=== PATIENT | female | born 1990 | race Caucasian/White ===

== ENCOUNTER → 2017-07-27 | Outpatient (CLI) | payer OTHER ==
[2017-07-27 13:55] LABS: GLUCOSE CHALLENGE TEST 1 HOUR 93 MG/DL (LESS THAN 140)
[2017-07-27 15:03] LABS: BASO # 0.1 10^3/uL (0.0-0.2); BASO % 0.6 % (0.0-1.0); EOS # 0.2 10^3/uL (0.0-0.50); HEMATOCRIT 33.9 % (36.0-47.0); HEMOGLOBIN 11.7 g/dl (12.0-16.0); IMMATURE GRANULOCYTE # 0.6 10^3/uL (0-0); IMMATURE GRANULOCYTE % 3.6 % (0-0); LYMPH # 2.8 10^3/uL (1.5-6.5); LYMPH % 17.9 % (24.0-44.0); MEAN CORPUSCULAR HEMOGLOBIN 32.8 pg (27.0-33.0); MEAN CORPUSCULAR HGB CONC 34.5 g/dl (32.0-36.5); MONO % 6.3 % (0.0-5.0); NEUTROPHILS % 70.6 % (36.0-66.0); PLATELET COUNT, AUTOMATED 138 10^3/uL (150-450); RED BLOOD COUNT 3.57 10^6/uL (4.00-5.40); RED CELL DISTRIBUTION WIDTH 12.7 % (11.5-14.5); WHITE BLOOD COUNT 15.7 10^3/uL (4.0-10.0)
[2017-07-28 10:28] LABS: HEPATITIS C VIRUS ABY INDEX < 0.0 INDEX (<0.8)
== END ==
LOC: M LAB 11:40
DX: Z34.83 Encounter for supervision of other normal pregnancy, third trimester (principal)
CPT/HCPCS: 82950

== ENCOUNTER → 2017-08-26 | Outpatient (CLI) | payer OTHER ==
[2017-08-26 12:35] LABS: ALBUMIN 3.3 GM/DL (3.2-5.2); ALBUMIN/GLOBULIN RATIO 1.06 (1.00-1.93); ALKALINE PHOSPHATASE 136 U/L (45-117); ALT/SGPT 17 U/L (12-78); ANION GAP 7 MEQ/L (8-16); AST/SGOT 10 U/L (7-37); BILIRUBIN,TOTAL 0.3 MG/DL (0.2-1.0); BLOOD UREA NITROGEN 9 MG/DL (7-18); CALCIUM LEVEL 8.4 MG/DL (8.5-10.1); CARBON DIOXIDE LEVEL 25 MEQ/L (21-32); CHLORIDE LEVEL 107 MEQ/L (98-107); CREATININE FOR GFR 0.59 MG/DL (0.55-1.30); GLOMERULAR FILTRATION RATE > 60.0 (>60); GLUCOSE, FASTING 108 MG/DL (70-100); POTASSIUM SERUM 3.9 MEQ/L (3.5-5.1); SODIUM LEVEL 139 MEQ/L (136-145); TOTAL PROTEIN 6.4 GM/DL (6.4-8.2)
[2017-08-29 00:07] LABS: BILE ACIDS FRACTIONATED 6.6 umol/L (4.7-24.5)
== END ==
LOC: M LAB 10:34
DX: Z36.9 Encounter for antenatal screening, unspecified (principal)
CPT/HCPCS: 80053

== ENCOUNTER → 2017-09-01 | Outpatient (REF) | payer OTHER | LOC: M LAB REF 16:53 | DX: Z34.83 Encounter for supervision of other normal pregnancy, third trimester (principal) ==

== ENCOUNTER 2017-09-24 05:27 | Inpatient (IN) | payer OTHER ==
[2017-09-24] MEDS ORDERED: LR 1,000 ML IV (06:00)
[2017-09-24] MEDS: LR 1,000 ML IV ×3 (06:07→17:43)
[2017-09-24 06:52] LABS: HEMOGLOBIN 11.8 g/dl (12.0-16.0); MEAN CORPUSCULAR HEMOGLOBIN 32.8 pg (27.0-33.0); MEAN CORPUSCULAR HGB CONC 34.7 g/dl (32.0-36.5); MEAN CORPUSCULAR VOLUME 94.4 fl (80.0-96.0); PLATELET COUNT, AUTOMATED 155 10^3/uL (150-450); WHITE BLOOD COUNT 17.3 10^3/uL (4.0-10.0)
[2017-09-24] MEDS: BICITRA 30ML SOLN UDC PO (07:32)
[2017-09-24] MEDS ORDERED: NALOXONE INJ 0.4 MG/1 ML VIAL (J2310) IV ×2 (07:49)
[2017-09-24] MEDS ORDERED: ONDANSETRON 4MG/2ML VIAL (J2405) IV ×2 (07:49→09:15)
[2017-09-24] MEDS ORDERED: METOCLOPRAMIDE INJ 10MG/2ML VIAL (J2765) IV (07:49)
[2017-09-24] MEDS ORDERED: NALBUPHINE HCL 10 MG/ML AMP (J2300) IV (07:49)
[2017-09-24] MEDS ORDERED: MORPHINE PRES-FREE INJ 10 MG/10 ML VIAL (J2274) As Ordered (08:02)
[2017-09-24] MEDS ORDERED: OXYTOCIN INJ 10 UNITS/ML VIAL (J2590) As Ordered ×2 (08:10)
[2017-09-24] MEDS ORDERED: KETOROLAC 60 MG/2 ML VIAL (J1885) As Ordered (08:11)
[2017-09-24] MEDS ORDERED: ONDANSETRON 4MG/2ML VIAL (J2405) As Ordered (08:11)
[2017-09-24] MEDS ORDERED: ePHEDrine SULFATE 25 MG/5 ML(5MG/ML) SYRINGE As Ordered (08:40)
[2017-09-24] MEDS ORDERED: fentaNYL 100 MCG/2 ML INJECTION (J3010) IV (09:15)
[2017-09-24] MEDS ORDERED: RHOGAM 300 MCG (1500 IU) INJ (J2790) IM (09:45)
[2017-09-24] MEDS ORDERED: MEASLES,MUMPS,RUBELLA VACCINE INJ (MMR-II) (90707) SC (09:45)
[2017-09-24] MEDS ORDERED: MOM 30ML SUSPENSION UDC PO (09:45)
[2017-09-24] MEDS: PRENATAL VITAMINS CHEWABLE TABLET PO (10:41)
[2017-09-24] MEDS: OXYTOCIN DRIP 30 UNITS in APPROPRIATE DILUENT 1 EA IV ×2 (10:41→12:25)
[2017-09-24] MEDS: KETOROLAC 30 MG/ML VIAL (J1885) IV ×2 (14:02→20:31)
[2017-09-24] MEDS: METHYLERGONOVINE MALEATE 0.2 MG/ML VIAL (J2210) IM (14:32)
[2017-09-24] MEDS: CARBOPROST TROMETHAMINE 250 MCG/ML AMP IM (16:41)
[2017-09-24 17:05] LABS: HEMATOCRIT 31.8 % (36.0-47.0); MEAN CORPUSCULAR HEMOGLOBIN 32.3 pg (27.0-33.0); MEAN CORPUSCULAR HGB CONC 34.6 g/dl (32.0-36.5); MEAN CORPUSCULAR VOLUME 93.3 fl (80.0-96.0); PLATELET COUNT, AUTOMATED 148 10^3/uL (150-450); RED BLOOD COUNT 3.41 10^6/uL (4.00-5.40); WHITE BLOOD COUNT 22.1 10^3/uL (4.0-10.0)
[2017-09-24] MEDS: ONDANSETRON 4MG/2ML VIAL (J2405) IV (18:16)
[2017-09-24] MEDS: METHYLERGONOVINE MALEATE 0.2 MG TAB PO ×2 (18:22→22:37)
[2017-09-25] MEDS: LR 1,000 ML IV ×3 (01:42→17:43)
[2017-09-25] MEDS: KETOROLAC 30 MG/ML VIAL (J1885) IV ×3 (02:22→08:41)
[2017-09-25] MEDS: METHYLERGONOVINE MALEATE 0.2 MG TAB PO ×5 (02:22→18:21)
[2017-09-25 07:14] LABS: HEMATOCRIT 28.1 % (36.0-47.0); HEMOGLOBIN 9.8 g/dl (12.0-16.0); MEAN CORPUSCULAR HEMOGLOBIN 32.5 pg (27.0-33.0); MEAN CORPUSCULAR HGB CONC 34.9 g/dl (32.0-36.5); PLATELET COUNT, AUTOMATED 121 10^3/uL (150-450); RED BLOOD COUNT 3.02 10^6/uL (4.00-5.40); RED CELL DISTRIBUTION WIDTH 12.8 % (11.5-14.5); WHITE BLOOD COUNT 17.3 10^3/uL (4.0-10.0)
[2017-09-25] MEDS: PRENATAL VITAMINS CHEWABLE TABLET PO (08:40)
[2017-09-25] MEDS: PERCOCET 5MG/325MG TAB PO ×3 (10:36→22:52)
[2017-09-25] MEDS: IBUPROFEN 800 MG TAB PO ×2 (11:52→19:55)
[2017-09-25] MEDS: DOCUSATE SODIUM 100 MG CAP PO (19:55)
[2017-09-26] MEDS: PERCOCET 5MG/325MG TAB PO ×2 (02:56→10:52)
[2017-09-26] MEDS: IBUPROFEN 800 MG TAB PO (04:36)
[2017-09-26] MEDS: PRENATAL VITAMINS CHEWABLE TABLET PO (08:14)
== END 2017-09-26 11:50 | disposition home or self-care (01) | DRG 540 ==
LOC: M LDI 05:27 → M OBS 10:27
PROVIDERS: Obstetrics & Gynecology
PROC: 10D00Z1 Extraction of Products of Conception, Low, Open Approach (ICD-10-PCS; principal; 2017-09-24)
DX: O34.211 Maternal care for low transverse scar from previous cesarean delivery (principal); Z37.0 Single live birth; Z3A.39 39 weeks gestation of pregnancy